=== PATIENT | female | born 1950 | race Caucasian/White ===

== ENCOUNTER 2017-10-15 09:59 | Day surgery (SDC) | payer MEDICARE ==
[~2017-10-15] VITALS: Ht 157.5 cm; Wt 88.0 kg
[~2017-10-15 09:59] MED LIST: BACL10 PO; CEFU500 PO; DEXL60CA3 PO; ENAL20 PO; ERGO400 PO; Hair, Skin & N1 EACH PO; LEVSOD112 PO; LEVSOD50 PO; LORA1 PO; MELO7.5 PO; RANI150 PO; RXHYDMOR2 PO; Zantac150 MG PO
[2017-10-16 04:23] LABS: BASOPHILS ABSOLUTE AUTO 0.03 K/mm3 (0.00-0.23); BASOPHILS PERCENT AUTO 0 % (0-2); EOSINOPHILS PERCENT AUTO 0 % (0-6); Hematocrit 40.6 % (33.0-51.0); Hemoglobin 13.3 g/dL (11.5-16.0); IMMATURE GRAN ABSOLUTE AUTO 0.06 K/mm3 (0.00-0.10); IMMATURE GRAN PERCENT AUTO 0 % (0-1); LYMPHOCYTES ABSOLUTE AUTO 0.83 K/mm3 (0.84-5.20); LYMPHOCYTES PERCENT AUTO 5 % (21-46); MONOCYTES ABSOLUTE AUTO 0.93 K/mm3 (0.16-1.47); MONOCYTES PERCENT AUTO 6 % (4-13); Mean Corpuscular HGB 30.6 pg (26.0-34.0); Mean Corpuscular HGB Conc 32.8 g/dL (31.5-36.5); Mean Corpuscular Volume 93 fL (80-100); Mean Platelet Volume 9.6 fL (9.1-12.4); NEUTROPHILS ABSOLUTE AUTO 13.84 K/mm3 (1.96-9.15); NEUTROPHILS PERCENT AUTO 88 % (41-73); Platelet Count 275 K/mm3 (150-400); RDW Coefficient Variation 12.4 % (11.7-14.2); RDW Standard Deviation 42.5 fL (35.1-46.3); Red Blood Cell Count 4.35 M/mm3 (3.80-5.20); White Blood Cell Count 15.69 K/mm3 (4.00-11.30)
[2017-10-16 04:41] LABS: Anion Gap 6 mmol/L (6-16); Blood Urea Nitrogen 13 mg/dL (8-24); Bun/Creatinine Ratio 19.4 (12.0-20.0); CO2, Blood 27 mmol/L (21-32); Calcium, Blood 8.7 mg/dL (8.5-10.1); Chloride, Blood 103 mmol/L (98-108); Creatinine, Blood 0.67 mg/dL (0.40-1.00); Glomerular Filtration Rate >60 (60-); Glucose, Blood 173 mg/dL (70-99); Magnesium, Blood 2.1 mg/dL (1.6-2.4); Potassium, Blood 4.4 mmol/L (3.5-5.5); Sodium, Blood 136 mmol/L (136-145)
[2017-10-16] MEDS ORDERED: Percocet 5-3251 EACH PO (09:07)
[2017-10-16] MEDS ORDERED: ASPI325EC PO (09:09)
== END 2017-10-16 15:31 | disposition home or self-care (01) ==
LOC: ORSCMMR 09:59 → SURS 16:12 → ORSCMMR 10-16 15:31 → SURS 10-16 15:31
PROVIDERS: Orthopaedic Surgery
PROC: 0SRD0J9 Replacement of Left Knee Joint with Synthetic Substitute, Cemented, Open Approach (ICD-10-PCS; principal; 2017-10-15 13:00)
PROC: 8E0YXBZ Computer Assisted Procedure of Lower Extremity (ICD-10-PCS; principal; 2017-10-15 13:00)
DX: M17.12 Unilateral primary osteoarthritis, left knee (principal); Z01.812 Encounter for preprocedural laboratory examination; Z01.818 Encounter for other preprocedural examination; I10 Essential (primary) hypertension; K21.9 Gastro-esophageal reflux disease without esophagitis; E03.9 Hypothyroidism, unspecified; Z87.891 Personal history of nicotine dependence; Z79.899 Other long term (current) drug therapy
CPT/HCPCS: 36415; 73560-LT; 80048; 83735; 85025; 86850; 86900; 86901; 88305; 97110; 97116; 97161; 97530; C1713; C1776; G8978; G8979; G8980; J0171; J0690; J0735; J1100; J1885; J2250; J2405; J2765; J2795; J3370; J7120

== ENCOUNTER 2018-04-01 07:30 | Inpatient (IN) | payer MEDICARE ==
[~2018-04-01] VITALS: Ht 160 cm; Wt 86.2 kg
[~2018-04-01 07:30] MED LIST changes: +ASPI325EC PO; +ENAL10 PO; +Percocet 5-3251 EACH PO
--- NOTE | 2018-04-01 10:14 | NUR ---
Ambulatory in Day Surgery History, Chart, Medications and Allergies reviewed before start of procedure. Lungs clear T/O to Auscultation. Patient confirms NPO status and agrees with scheduled surgery. Pre-Op teaching done. Pt verbalizes understanding.
--- NOTE | 2018-04-01 19:35 | NUR ---
SHIFT SUMMARY OT A&OX4, VSS, S/P R PILLO, SURGICAL DRESSING CDI. PAIN MANAGED PER EMAR. ABRAM PO, DENIES N&V. AMB FWW & GB TO BRP, UP IN CHAIR. WILL CTM & TX PER EMAR UNTIL REPORT GIVEN TO ONCOMING NOC RN.
[2018-04-02 06:07] LABS: BASOPHILS ABSOLUTE AUTO 0.04 K/mm3 (0.00-0.23); BASOPHILS PERCENT AUTO 0 % (0-2); EOSINOPHILS ABSOLUTE AUTO 0.01 K/mm3 (0.00-0.68); EOSINOPHILS PERCENT AUTO 0 % (0-6); Hematocrit 37.9 % (33.0-51.0); Hemoglobin 12.3 g/dL (11.5-16.0); IMMATURE GRAN ABSOLUTE AUTO 0.08 K/mm3 (0.00-0.10); IMMATURE GRAN PERCENT AUTO 1 % (0-1); LYMPHOCYTES ABSOLUTE AUTO 0.97 K/mm3 (0.84-5.20); LYMPHOCYTES PERCENT AUTO 6 % (21-46); MONOCYTES ABSOLUTE AUTO 1.03 K/mm3 (0.16-1.47); MONOCYTES PERCENT AUTO 6 % (4-13); Mean Corpuscular HGB 29.6 pg (26.0-34.0); Mean Corpuscular HGB Conc 32.5 g/dL (31.5-36.5); Mean Corpuscular Volume 91 fL (80-100); Mean Platelet Volume 9.6 fL (9.1-12.4); NEUTROPHILS PERCENT AUTO 87 % (41-73); Platelet Count 250 K/mm3 (150-400); RDW Standard Deviation 43.3 fL (35.1-46.3); Red Blood Cell Count 4.15 M/mm3 (3.80-5.20); White Blood Cell Count 16.03 K/mm3 (4.00-11.30)
[2018-04-02 06:31] LABS: Anion Gap 8 mmol/L (6-16); Blood Urea Nitrogen 12 mg/dL (8-24); Bun/Creatinine Ratio 15.3 (12.0-20.0); CO2, Blood 26 mmol/L (21-32); Chloride, Blood 98 mmol/L (98-108); Creatinine, Blood 0.78 mg/dL (0.40-1.00); Glomerular Filtration Rate >60 (60-); Glucose, Blood 152 mg/dL (70-99); Magnesium, Blood 2.1 mg/dL (1.6-2.4); Potassium, Blood 4.3 mmol/L (3.5-5.5); Sodium, Blood 132 mmol/L (136-145)
--- NOTE | 2018-04-02 08:05 | NUR ---
SHIFT SUMMARY PT A&O X4 T/O SHIFT. POD#1 R PILLO; DRESSING CDI. PPPX4; PT DENIES N/T IN EXT. ALL EXT. PWD. PAIN MANGED PER EMAR. CRYOTHERAPY TO R HIP. RA; PT DENIES CP, NAUSEA AND SOB. UP WITH FWW, GAITBELT AND SBA TO TOILET AND FOR SHORT WALK IN LOW X1. UP IN RECLINER THIS AM. CALL LIGHT IN REACH. REPORT GIVEN TO DAY SHIFT RN.
[2018-04-02] MEDS ORDERED: ASPI325EC PO (15:01)
[2018-04-02] MEDS ORDERED: ROXICODONE5 MG PO (15:01)
[2018-04-02] MEDS ORDERED: PROM25 PO (15:04)
--- NOTE | 2018-04-02 15:52 | NUR ---
DISCHARGE SUMMARY PT A&OX4, VSS, LEFT FLOOR VIA WC WITH CUTTER WET MACHINE TO GO HOME WITH ROMAN AND FRIEND, WITH ALL PERSONAL POSSESSIONS INCLUDING DISCHARGE INSTRUCTIONS. PT STATED SHE PREVIOUSLY OBTAINED POSSESSION OF THE NARC SCRIPT, ASA AND 2 ABX SCRIPTS FROM SURGEON'S OFFICE. DISCHARGE INSTRUCTIONS PROVIDED. PT REP UNDERSTANDING THOSE INSTRUCTIONS INLCUDING DRESSING CHANGES, FU APPT, PHYS THERAPY, AND HOME HEALTH. IV DC'D.
== END 2018-04-02 16:00 | disposition home or self-care (01) | DRG 470 ==
LOC: PRE IP 07:30 → SURS 09:21 → PRE IP 11:25 → SURS 15:58
PROVIDERS: ADMIT Orthopaedic Surgery
PROC: 0SR904A Replacement of Right Hip Joint with Ceramic on Polyethylene Synthetic Substitute, Uncemented, Open Approach (ICD-10-PCS; principal; 2018-04-01 11:25)
DX: M16.11 Unilateral primary osteoarthritis, right hip (principal); E03.9 Hypothyroidism, unspecified; I10 Essential (primary) hypertension; K21.9 Gastro-esophageal reflux disease without esophagitis; M79.7 Fibromyalgia; G89.29 Other chronic pain; M54.5 Low back pain; Z88.8 Allergy status to other drugs, medicaments and biological substances; Z88.1 Allergy status to other antibiotic agents; Z88.0 Allergy status to penicillin; Z91.013 Allergy to seafood; Z87.891 Personal history of nicotine dependence
CPT/HCPCS: 36415; 72170; 80048; 83735; 85025; 88300; 97110; 97116; 97162; 97165; 97530; 97535; C1713; C1776; J0171; J0735; J1100; J1885; J2250; J2795; J3370; J7120

== ENCOUNTER 2021-10-08 17:08 | Emergency (ER) | payer MEDICARE ==
[~2021-10-08] VITALS: Ht 160 cm; Wt 90.7 kg
[~2021-10-08 17:08] MED LIST changes: +PROM25 PO; +ROXICODONE5 MG PO
[2021-10-08] MEDS ORDERED: HYDR1TAB94 PO (17:54)
== END 2021-10-08 18:07 | disposition home or self-care (01) ==
LOC: ER 17:08
DX: M79.661 Pain in right lower leg (principal); E78.5 Hyperlipidemia, unspecified; I10 Essential (primary) hypertension; E03.9 Hypothyroidism, unspecified; Z88.0 Allergy status to penicillin; Z88.1 Allergy status to other antibiotic agents; Z91.013 Allergy to seafood; Z79.899 Other long term (current) drug therapy; Z79.82 Long term (current) use of aspirin; Z96.652 Presence of left artificial knee joint; Z96.641 Presence of right artificial hip joint; Z87.891 Personal history of nicotine dependence
CPT/HCPCS: A9270

== ENCOUNTER 2021-11-22 06:12 | Day surgery (SDC) | payer MEDICARE ==
[~2021-11-22] VITALS: Ht 160 cm; Wt 85.7 kg
[~2021-11-22 06:12] MED LIST changes: +EUTHYROX88 MCG PO; +FLUC200 PO; +HYDR1TAB94 PO; -LEVSOD50 PO
--- NOTE | 2021-11-22 06:35 | NUR ---
11/22/21 0635 Aletha Galan AT 0632 PLEDGET AT 0630
--- NOTE | 2021-11-22 08:12 | NUR ---
11/22/21 0812 ROC WEBB 500 NS fluids at 250 upon ADMIN STEPDOWN. 0 FLUIDS USED AND D/C.
--- NOTE | 2021-11-22 08:39 | NUR ---
11/22/21 0839 SHARON TAM 100MLS OF NS IV INTAKE INTRAOPERATIVELY.
== END 2021-11-22 08:10 | disposition home or self-care (01) ==
LOC: ORSCSDS 06:12
PROVIDERS: Ophthalmology
PROC: 08RJ3JZ Replacement of Right Lens with Synthetic Substitute, Percutaneous Approach (ICD-10-PCS; principal; 2021-11-22 07:30)
DX: H25.11 Age-related nuclear cataract, right eye (principal); Z96.1 Presence of intraocular lens; I10 Essential (primary) hypertension; E03.9 Hypothyroidism, unspecified; Z79.899 Other long term (current) drug therapy; Z87.891 Personal history of nicotine dependence
CPT/HCPCS: J2001; J2250; J3010; J3301; J7040; J7120; V2632

== ENCOUNTER → 2022-07-12 | Outpatient (CLI) | payer MEDICARE ==
[2022-07-12 18:55] LABS: BASOPHILS ABSOLUTE AUTO 0.11 K/mm3 (0.00-0.23); BASOPHILS PERCENT AUTO 1 % (0-2); EOSINOPHILS ABSOLUTE AUTO 0.38 K/mm3 (0.00-0.68); EOSINOPHILS PERCENT AUTO 4 % (0-6); Hematocrit 41.5 % (33.0-51.0); Hemoglobin 14.1 g/dL (11.5-16.0); IMMATURE GRAN ABSOLUTE AUTO 0.02 K/mm3 (0.00-0.10); IMMATURE GRAN PERCENT AUTO 0 % (0-1); LYMPHOCYTES ABSOLUTE AUTO 2.64 K/mm3 (0.84-5.20); LYMPHOCYTES PERCENT AUTO 29 % (21-46); MONOCYTES ABSOLUTE AUTO 0.81 K/mm3 (0.16-1.47); MONOCYTES PERCENT AUTO 9 % (4-13); Mean Corpuscular HGB 30.3 pg (26.0-34.0); Mean Corpuscular Volume 89 fL (80-100); Mean Platelet Volume 9.8 fL (9.1-12.4); NEUTROPHILS ABSOLUTE AUTO 5.15 K/mm3 (1.96-9.15); NEUTROPHILS PERCENT AUTO 57 % (41-73); Platelet Count 279 K/mm3 (150-400); RDW Coefficient Variation 13.2 % (11.7-14.2); RDW Standard Deviation 43.5 fL (35.1-46.3); Red Blood Cell Count 4.65 M/mm3 (3.80-5.20); White Blood Cell Count 9.11 K/mm3 (4.00-11.30)
[2022-07-12 19:14] LABS: Bun/Creatinine Ratio 16.8 (12.0-20.0); Calcium, Blood 9.9 mg/dL (8.5-10.1); Creatinine, Blood 0.95 mg/dL (0.40-1.00); Free Thyroxine 1.15 ng/dL (0.70-1.60); Potassium, Blood 4.1 mmol/L (3.5-5.5); Thyroid Stimulating Hormone 3.804 uIU/mL (0.360-4.800)
== END | disposition home or self-care (01) ==
LOC: LAB 18:49 → LAB SHORT 18:49
PROVIDERS: Physician Assistant Surgical
DX: R07.89 Other chest pain (principal); R53.83 Other fatigue
CPT/HCPCS: 80048; 84439; 84443; 84481; 84484; 85025

== ENCOUNTER 2022-10-24 14:49 | Emergency (ER) | payer MEDICARE ==
[~2022-10-24] VITALS: Ht 157.5 cm; Wt 81.7 kg
[2022-10-24 14:56] VITALS: BP 167/74
[2022-10-24] MEDS ORDERED: Norco 5-325 Ta1 EACH PO (16:51)
== END 2022-10-24 17:02 | disposition home or self-care (01) ==
LOC: ER 14:49
DX: M54.42 Lumbago with sciatica, left side (principal); Z88.0 Allergy status to penicillin; Z88.8 Allergy status to other drugs, medicaments and biological substances; Z91.013 Allergy to seafood; Z88.1 Allergy status to other antibiotic agents; Z79.899 Other long term (current) drug therapy; E78.5 Hyperlipidemia, unspecified; I10 Essential (primary) hypertension; G43.909 Migraine, unspecified, not intractable, without status migrainosus; E03.9 Hypothyroidism, unspecified; Z87.891 Personal history of nicotine dependence
CPT/HCPCS: 99284; A9270